=== PATIENT | male | born 2000 | race Caucasian/White ===

== ENCOUNTER 2022-06-28 20:03 | Emergency (ER) | payer SELFPAY ==
--- NOTE | 2022-06-28 20:11 | ED General ---
General Stated Complaint: CYST R SIDE OF FACE,FLUID LEAKING FROM CYST Source of Information: Patient Exam Limitations: No Limitations History of Present Illness Date Seen by Provider: Jun 28, 2022 Time Seen by Provider: 20:11 Initial Comments 22-year-old male presents for swollen area to his right face. It started draining last couple of days. He was initially seen at the [facility] clinic and started on what he thinks was a "stronger amoxicillin." Record review shows this was Augmentin. He states he was on this for about 2 weeks with no improvement. He has not been on antibiotics for about a month and a half. Denies any fevers chills nausea or vomiting. Does have significant swelling and drainage from the left right facial swelling. Allergies and Home Medications Allergies Coded Allergies: No Known Drug Allergies (Unverified , 06/28/22) Patient Home Medication List Home Medication List Reviewed: Yes Sulfamethoxazole/Trimethoprim (Bactrim Ds Tablet) 1 Each Tablet, 1 EACH PO BID Prescribed by: YUDITH BARILLAS MD on 06/28/22 2030 Review of Systems Review of Systems Constitutional: no symptoms reported EENTM: no symptoms reported Respiratory: no symptoms reported Cardiovascular: no symptoms reported Gastrointestinal: no symptoms reported Genitourinary: no symptoms reported Musculoskeletal: no symptoms reported Skin: other (Swelling in the right lateral mandibular region. She is expressing purulent material from a central opening. No surrounding cellulitis) Past Kniztsd-Kzgoqx-Ihmgme Hx Patient Social History Tobacco Use?: Yes Use of E-Cig and/or Vaping dev: No Substance use?: No Alcohol Use?: No Family Medical History Reviewed Nursing Family Hx No Pertinent Family Hx Physical Exam Vital Signs Vital Signs - First Documented 06/28/22 20:16 Temp 36.9 Pulse 76 Resp 20 B/P (MAP) 119/70 (86) Pulse Ox 98 O2 Delivery Room Air Capillary Refill : Height, Weight, BMI Height: '" Weight: lbs. oz. kg; BMI Method: General Appearance: No Apparent Distress, WD/WN HEENT: Normal ENT Inspection, Pharynx Normal Neck: Normal Inspection, Non Tender, Supple Respiratory: Chest Non Tender, Lungs Clear, Normal Breath Sounds, No Accessory Muscle Use, No Respiratory Distress Cardiovascular: Regular Rate, Rhythm, No Edema, No Gallop, No JVD, No Murmur Skin: Other (Swelling approximately 4 cm maximal diam of the right mandibular region just anterior to the ear and not occluding the ear. There is a central opening in the medical able to express some purulent material) Procedures/Interventions I&D : Site: Right face Blade Size: 10 Progress Copious nonpurulent material expressed. Patient tolerated well. Progress/Results/Core Measures Suspected Sepsis SIRS Temperature: Pulse: Respiratory Rate: Blood Pressure / Mean: Results/Orders My Orders Orders - YUDITH BARILLAS DO Sulfamethoxazole/Trimet Ds Tab (Bactrim (06/28/22 20:30) Medications Given in ED Current Medications Medications Dose Ordered Sig/Rubi Route Start Time Stop Time Status Last Admin Dose Admin Trimethoprim/ Sulfamethoxazole 1 ea ONCE ONCE PO 06/28/22 20:30 06/28/22 20:32 DC 06/28/22 20:29 1 EA Vital Signs/I&O 06/28/22 06/28/22 20:16 20:34 Temp 36.9 36.8 Pulse 76 70 Resp 20 18 B/P (MAP) 119/70 (86) 113/65 Pulse Ox 98 97 O2 Delivery Room Air Room Air Capillary Refill : Departure Impression Primary Impression: Abscess Disposition: HOME, SELF-CARE Condition: Stable Departure-Patient Inst. Referrals: [facility] (PCP/Family) Primary Care Physician JERI EVANS MD Patient Instructions: Abscess Incision and Drainage (DC) Add. Discharge Instructions: Take the antibiotics as prescribed until they are gone. Keep the wound open is much as possible and use warm compresses as discussed. Follow-up with a audit partner by calling to schedule as recommended. Scripts Sulfamethoxazole/Trimethoprim (Bactrim Ds Tablet) 1 Each Tablet 1 EACH PO BID for 10 Days, #20 TAB Prov: YUDITH BARILLAS DO 06/28/22 YUDITH BARILLAS DO Jun 28, 2022 20:11
[2022-06-28] MEDS ORDERED: SULF1TAB38 PO (20:30)
[2022-06-28] MEDS ORDERED: TRIM/SULFAMETH 160/800 (SEPTRA DS) TAB PO ONE (20:30)
[2022-06-28 20:34] VITALS: BP 113/65
== END 2022-06-28 20:35 | disposition home or self-care (01) ==
LOC: ER 20:06
DX: L02.01 Cutaneous abscess of face (principal); Z72.0 Tobacco use; Z28.311 Partially vaccinated for COVID-19

== ENCOUNTER 2022-11-16 16:39 | Emergency (ER) | payer SELFPAY ==
[~2022-11-16] VITALS: Ht 167.7 cm; Wt 62.6 kg
[~2022-11-16 16:39] MED LIST: SULF1TAB38 PO
--- NOTE | 2022-11-16 17:10 | ED General ---
General Chief Complaint: Cough/Cold/Flu Symptoms Stated Complaint: MIGRAINE, VISUAL DISTURBANCE Source of Information: Patient Exam Limitations: No Limitations History of Present Illness Date Seen by Provider: Nov 16, 2022 Time Seen by Provider: 17:00 Initial Comments Patient is a 22-year-old male who presents to the emergency department with approximately 1 week of flulike symptoms including fatigue, body aches, nausea/vomiting, cough, nasal congestion. Denies any known sick contacts. States he has also had some "black vision" with rapid position changes. States he has not been able to eat or drink much in the last 24 hours. Denies any chest pain or significant shortness of air. Patient is currently a daily smoker. Allergies and Home Medications Allergies Coded Allergies: No Known Drug Allergies (Unverified , 06/28/22) Patient Home Medication List Home Medication List Reviewed: Yes Ondansetron (Ondansetron Odt) 4 Mg Tab.rapdis, 4 MG SL Q4H PRN for NAUSEA/VOMITING Prescribed by: Josh Horton on 11/16/221845 Sulfamethoxazole/Trimethoprim (Bactrim Ds Tablet) 1 Each Tablet, 1 EACH PO BID Prescribed by: YUDITH BARILLAS MD on 06/28/22 2030 Review of Systems Review of Systems Constitutional: see HPI, malaise EENTM: see HPI, nose congestion Respiratory: see HPI, cough Cardiovascular: no symptoms reported Gastrointestinal: see HPI, nausea, vomiting Genitourinary: no symptoms reported Musculoskeletal: no symptoms reported Skin: no symptoms reported Psychiatric/Neurological: No Symptoms Reported Hematologic/Lymphatic: No Symptoms Reported Immunological/Allergic: no symptoms reported Past Eqryrdl-Rtcmja-Txlnzj Hx Immunizations Up To Date First/Initial COVID19 Vaccinat: UNKNOWN Family Medical History No Pertinent Family Hx Physical Exam Vital Signs Vital Signs - First Documented 11/16/22 16:52 Temp 36.0 Pulse 80 Resp 18 B/P (MAP) 128/88 (101) Pulse Ox 100 O2 Delivery Room Air Capillary Refill : Height, Weight, BMI Height: '" Weight: lbs. oz. kg; BMI Method: General Appearance: No Apparent Distress, WD/WN HEENT: PERRL/EOMI, TMs Normal, Normal ENT Inspection, Pharynx Normal Neck: Full Range of Motion, Normal Inspection, Non Tender, Supple Respiratory: Chest Non Tender, Lungs Clear, Normal Breath Sounds, No Accessory Muscle Use, No Respiratory Distress Cardiovascular: Regular Rate, Rhythm Gastrointestinal: Non Tender, Soft Neurologic/Psychiatric: Alert, Oriented x3, No Motor/Sensory Deficits, Normal Mood/Affect Skin: Normal Color, Warm/Dry Progress/Results/Core Measures Suspected Sepsis SIRS Temperature: Pulse: Respiratory Rate: Laboratory Tests 11/16/22 17:11: White Blood Count 6.3 Blood Pressure / Mean: Laboratory Tests 11/16/22 17:11: Creatinine 1.20, Platelet Count 191 Results/Orders Lab Results Laboratory Tests Test 11/16/22 17:11 11/16/22 17:45 Range/Units White Blood Count 6.3 4.3-11.0 10^3/uL Red Blood Count 5.15 4.30-5.52 10^6/uL Hemoglobin 16.5 13.3-17.7 g/dL Hematocrit 48 40-54 % Mean Corpuscular Volume 92 80-99 fL Mean Corpuscular Hemoglobin 32 25-34 pg Mean Corpuscular Hemoglobin Concent 35 32-36 g/dL Red Cell Distribution Width 13.2 10.0-14.5 % Platelet Count 191 130-400 10^3/uL Mean Platelet Volume 9.4 9.0-12.2 fL Immature Granulocyte % (Auto) 0 % Neutrophils (%) (Auto) 63 42-75 % Lymphocytes (%) (Auto) 20 12-44 % Monocytes (%) (Auto) 14 H 0-12 % Eosinophils (%) (Auto) 2 0-10 % Basophils (%) (Auto) 0 0-10 % Neutrophils # (Auto) 4.0 1.8-7.8 10^3/uL Lymphocytes # (Auto) 1.3 1.0-4.0 10^3/uL Monocytes # (Auto) 0.9 0.0-1.0 10^3/uL Eosinophils # (Auto) 0.1 0.0-0.3 10^3/uL Basophils # (Auto) 0.0 0.0-0.1 10^3/uL Immature Granulocyte # (Auto) 0.0 0.0-0.1 10^3/uL Sodium Level 140 135-145 MMOL/L Potassium Level 3.8 3.6-5.0 MMOL/L Chloride Level 102 98-107 MMOL/L Carbon Dioxide Level 28 21-32 MMOL/L Anion Gap 10 5-14 MMOL/L Blood Urea Nitrogen 5 L 7-18 MG/DL Creatinine 1.20 0.60-1.30 MG/DL Estimat Glomerular Filtration Rate 88 BUN/Creatinine Ratio 4 Glucose Level 93 70-105 MG/DL Calcium Level 9.5 8.5-10.1 MG/DL Influenza Type A (RT-PCR) Detected H Not Detecte Influenza Type B (RT-PCR) Not Detected Not Detecte SARS-CoV-2 RNA (RT-PCR) Not Detected Not Detecte Urine Color YELLOW Urine Clarity CLOUDY Urine pH 6.0 5-9 Urine Specific [place] 1.010 L 1.016-1.022 Urine Protein NEGATIVE NEGATIVE Urine Glucose (UA) NEGATIVE NEGATIVE Urine Ketones NEGATIVE NEGATIVE Urine Nitrite NEGATIVE NEGATIVE Urine Bilirubin NEGATIVE NEGATIVE Urine Urobilinogen 0.2 < = 1.0 MG/DL Urine Leukocyte Esterase NEGATIVE NEGATIVE Urine RBC (Auto) NEGATIVE NEGATIVE Urine RBC NONE /HPF Urine WBC 0-2 /HPF Urine Squamous Epithelial Cells 5-10 /HPF Urine Crystals NONE /LPF Urine Bacteria NEGATIVE /HPF Urine Casts NONE /LPF Urine Mucus NEGATIVE /LPF Urine Culture Indicated NO My Orders Orders - JOHS HORTON [employer]UCK [employer]INTER Covid 19 Inhouse Test (11/16/22 17:07) Cbc With Automated Diff (11/16/22 17:07) Basic Metabolic Panel (11/16/22 17:07) Iv/Invasive Line Insertion .IV INSERT (11/16/22 17:07) Influenza A And B By Pcr (11/16/22 17:07) Isolation Central Supply Req (11/16/22 17:07) Prochlorperazine Injection (Compazine In (11/16/22 17:15) Ketorolac Injection (Toradol Injection) (11/16/22 17:15) Urinalysis (11/16/22 17:31) Medications Given in ED Current Medications Medications Dose Ordered Sig/Rubi Route Start Time Stop Time Status Last Admin Dose Admin Ketorolac Tromethamine 15 mg ONCE ONCE IVP 11/16/22 17:15 11/16/22 17:16 DC 11/16/22 17:35 15 MG Prochlorperazine Edisylate 10 mg ONCE ONCE IV 11/16/22 17:15 11/16/22 17:16 DC 11/16/22 17:34 10 MG Vital Signs/I&O 11/16/22 11/16/22 16:52 19:05 Temp 36.0 Pulse 80 82 Resp 18 18 B/P (MAP) 128/88 (101) 123/82 Pulse Ox 100 100 O2 Delivery Room Air Room Air Capillary Refill : Progress Note : Progress Note Patient is nontoxic and well-hydrated on exam. No evidence systemic signs or increased work of breathing noted on exam. Vital signs are reassuring. Patient was ambulatory to the room without issue. He is awake alert and oriented answers all questions appropriately. Orders placed for CBC, BMP, IV insertion, and rapid COVID/flu test. Patient was also given an IV dose of ketorolac and Compazine for his headache. CBC and BMP are unremarkable. Specifically there is no leukocytosis, anemia, or metabolic derangement. Rapid COVID test is negative. Rapid flu test is positive. Patient is outside the window for Tamiflu. I discussed supportive care and anticipatory guidance. Follow-up with PCP. Return precautions for urgent symptomology discussed. Patient verbalized understanding. Departure Impression Primary Impression: Influenza A Disposition: 01 HOME, SELF-CARE Condition: Stable Departure-Patient Inst. Decision time for Depature: 18:45 Referrals: [facility] (PCP/Family) Primary Care Physician Patient Instructions: Flu, Adult ED Scripts Ondansetron (Ondansetron Odt) 4 Mg Tab.rapdis 4 MG SL Q4H PRN for NAUSEA/VOMITING for 3 Days, #18 TAB 0 Refills Prov: JOSH HORTON APRN 11/16/22 JOSH HORTON APRN Nov 16, 2022 17:10
[2022-11-16 17:15] LABS: BASOPHILS % (AUTO) 0 % (0-10); EOSINOPHILS # (AUTO) 0.1 10^3/uL (0.0-0.3); EOSINOPHILS % (AUTO) 2 % (0-10); HEMATOCRIT 48 % (40-54); HEMOGLOBIN 16.5 g/dL (13.3-17.7); LYMPHOCYTES # (AUTO) 1.3 10^3/uL (1.0-4.0); LYMPHOCYTES % (AUTO) 20 % (12-44); MEAN CORPUSCULAR HEMOGLOBIN 32 pg (25-34); MEAN CORPUSCULAR HGB CONC 35 g/dL (32-36); MEAN CORPUSCULAR VOLUME 92 fL (80-99); MEAN PLATELET VOLUME 9.4 fL (9.0-12.2); MONOCYTES # (AUTO) 0.9 10^3/uL (0.0-1.0); MONOCYTES % (AUTO) 14 % (0-12); NEUTROPHILS % (AUTO) 63 % (42-75); PLATELET COUNT 191 10^3/uL (130-400); WHITE BLOOD COUNT 6.3 10^3/uL (4.3-11.0)
[2022-11-16] MEDS ORDERED: KETOROLAC 15 MG/ML VIAL IVP ONE (17:15)
[2022-11-16] MEDS ORDERED: PROCHLORPERAZINE 10 MG/2ML INJ (COMPAZINE) IV ONE (17:15)
[2022-11-16 17:18] LABS: POTASSIUM 3.8 MMOL/L (3.6-5.0)
[2022-11-16 17:19] LABS: CALCIUM 9.5 MG/DL (8.5-10.1)
[2022-11-16 17:23] LABS: CREATININE SERUM 1.2 MG/DL (0.60-1.30)
[2022-11-16 17:47] LABS: BILIRUBIN,URINE NEGATIVE (NEGATIVE); CLARITY,URINE CLOUDY; COLOR,URINE YELLOW; GLUCOSE, URINE (UA) NEGATIVE (NEGATIVE); KETONES,URINE NEGATIVE (NEGATIVE); LEUKOCYTE ESTERASE ,URINE NEGATIVE (NEGATIVE); NITRITE,URINE NEGATIVE (NEGATIVE); PROTEIN,URINE NEGATIVE (NEGATIVE)
[2022-11-16 18:00] LABS: BACTERIA,URINE NEGATIVE /HPF; WBC,URINE 0-2 /HPF
[2022-11-16] MEDS ORDERED: ONDA4TAB11 SL (18:46)
[2022-11-16 19:05] VITALS: BP 123/82
== END 2022-11-16 19:05 | disposition home or self-care (01) ==
LOC: EDUNIT# 16:39 → ER 16:43
DX: J10.1 Influenza due to other identified influenza virus with other respiratory manifestations (principal); F17.210 Nicotine dependence, cigarettes, uncomplicated; Z20.822 Contact with and (suspected) exposure to COVID-19; Z28.310 Unvaccinated for COVID-19
CPT/HCPCS: 36415; 80048; 81000; 85025; 87636; 99283